=== PATIENT | male | born 1975 | race Caucasian/White ===

== ENCOUNTER → 2018-08-24 | Outpatient (CLI) | payer BC, OTHER ==
[~2018-08-24] MED LIST: ALDACTONE25 MG PO; COREG6.25 MG PO; COUMADIN 3 MG TA3 M1 PO; ENOXAPARIN120 MG/0.1 SUBQ; FLECAINIDE ACET50 M1 PO; LANOXIN 0.120.125 M3 PO; LASIX 40 MG TAB40 M2 PO; LIPITOR 20 MG T20 M1 PO; LISINOPRIL5 MG PO; OMEPRAZOLE 20 M20 M1 PO; PACERONE 200 M200 M1 PO; POTASSIUM20 PO; PRADAXA150 MG PO; TUMS PO; TYLENOL325 MG PO
[2018-08-24 07:13] LABS: HEMATOCRIT 38.2 % (42.0-52.0); MCH 24.1 pg (26.0-34.0); MCHC 31.5 g/dL (28.0-37.0); MCV 76.5 fL (80.0-100.0); RBC 4.99 mil/uL (4.50-6.00); WBC 4.7 thou/uL (4.0-11.0)
[2018-08-24 07:28] LABS: ALBUMIN 3.7 g/dL (3.4-5.0); CALCIUM 9.1 mg/dL (8.5-10.1); CREATININE 0.9 mg/dL (0.7-1.3); POTASSIUM 4.7 mmol/L (3.5-5.1); TOTAL BILIRUBIN 0.6 mg/dL (<0.1-1.0); TOTAL PROTEIN 7.5 g/dL (6.4-8.2)
== END ==
LOC: CAT 06:46
PROVIDERS: Internal Medicine Cardiovascular Disease
DX: I48.91 Unspecified atrial fibrillation (principal)

== ENCOUNTER → 2018-08-28 | Outpatient (CLI) | payer BC, OTHER | LOC: CAT 06:49 | DX: I48.91 Unspecified atrial fibrillation (principal) ==

== ENCOUNTER 2018-08-29 06:36 | Outpatient (CLI) | payer BC, OTHER ==
[~2018-08-29] VITALS: Ht 182.9 cm; Wt 137.0 kg
[2018-08-29] VITALS (10 sets, daily range): BP systolic 134–149; BP diastolic 63–90
[~2018-08-29 06:36] MED LIST changes: -FLECAINIDE ACET50 M1 PO; -PRADAXA150 MG PO
[2018-08-29] MEDS ORDERED: FLECAINIDE ACET50 M1 PO (07:33)
[2018-08-29] MEDS ORDERED: PRADAXA150 MG PO (07:35)
[2018-08-29 07:53] LABS: ABSOLUTE NEUTROPHILS 2.3 thou/uL (1.4-8.2); BASOPHILS 0.6 % (0.0-2.0); EOSINOPHILS 2.6 % (0.0-3.0); HEMATOCRIT 39.1 % (42.0-52.0); HEMOGLOBIN 12.2 gm/dL (14.0-18.0); LYMPHOCYTES 37.4 % (24.0-44.0); MCHC 31.2 g/dL (28.0-37.0); MONOCYTES 9.1 % (1.0-8.0); PLATELET COUNT 123 thou/uL (150-400); POLYS 50.3 % (36.0-66.0); RBC 5.08 mil/uL (4.50-6.00); RDW 19.4 % (10.5-14.5); WBC 4.5 thou/uL (4.0-11.0)
[2018-08-29 08:02] LABS: CALCIUM 9.2 mg/dL (8.5-10.1); CREATININE 0.9 mg/dL (0.7-1.3); POTASSIUM 3.9 mmol/L (3.5-5.1)
[2018-08-29 08:06] LABS: APTT 27.1 Seconds (24.5-32.8); PROTIME 10.4 Seconds (9.3-11.4)
[2018-08-29 08:08] LABS: ALBUMIN 3.7 g/dL (3.4-5.0); TOTAL BILIRUBIN 0.8 mg/dL (<0.1-1.0); TOTAL PROTEIN 7.3 g/dL (6.4-8.2)
--- NOTE | 2018-08-29 20:12 | NUR ---
PATIENT ARRIVED FROM AIRPLANE PILOT AT 1430, ALERT AND ORIENTED X4. SR ON THE MONITOR AND VSS. RT GRION SITE D/C/I AND PATIENT UNDERSTANDING OF ACTIVITY RESTRICTIONS. C/O LT EYE PAIN, AND SORE THROAT. LAYOUT MAN NAYA AT BEDSIDE AND EVELUATED PATIENT ORDERS IN. LT EYE RED AND TEARY, COLD WASH CLOTH APPLIED PER PATIENT REQUEST AND PATIENT REPORTED RELIEVE. POC INTIATED AND ADMISSION COMPLETED.
[2018-08-30 04:31] VITALS: BP 136/83
--- NOTE | 2018-08-30 08:16 | NUR ---
ASSESSMENT CHARTED. PATIENT ON BEDREST AT START OF SHIFT FROM AFIB ABLATION. PATIENT HAS EF OF 20-25%. AT START OF SHIFT PATIENT C/O HEADACHE, MIGRAINE, SCRATCHED LEFT EYE, SORE THROAT WITH UVULA TORN FROM PROCEDURE ANESTHESIA. RIGHT GROIN ACCESS USED. DRESSING IS UNCHANGED DURING SHIFT. PATIENT WAS UP AT [place] DURING SHIFT. PLAN OF CARE IS TO BE SEEN BY ANESTHESIA TODAY, THEN POSSIBLE RELEASE HOME.
[2018-08-30 08:45] VITALS: BP 127/86
[2018-08-30 10:14] VITALS: BP 127/86
[2018-08-30 10:20] VITALS: BP 127/86
--- NOTE | 2018-08-30 14:13 | P ---
[facility] [place] [address] PROCEDURE REPORT Name: KATHERINEDESTIN Room #: [facility] CEE Fernandez#: [id number] Admission: 08/29/18 ������������������ Attend Phys: Efraín Choudhary MD Discharge: 08/30/18 ������������������ Date of : 71 Report #: [id number] THIS REPORT FOR: //name// CC: [facility] physician/PCP Efraín Choudhary PREOPERATIVE DIAGNOSIS: Paroxysmal atrial fibrillation. POSTOPERATIVE DIAGNOSIS: Paroxysmal atrial fibrillation. HISTORY: The patient is a 42-year-old male with history of paroxysmal atrial fibrillation as well as prior nonischemic cardiomyopathy, which has since resolved, who is here for AFib ablation. ANESTHESIA: The patient underwent general anesthesia. They did have some difficulties with his intubation and had to use a GlideScope. Post procedure he was extubated without any airway related issues or bleeding. PROCEDURES PERFORMED: 1. Atrial fibrillation ablation, CPT code 85894. 2. Programmed stimulation and pacing after IV drug infusion, CPT code 20418. 3. 3D mapping EP, CPT code 82436. 4. Arterial line placement, CPT code 46135. 5. Intracardiac echo, CPT code 38813. DESCRIPTION OF PROCEDURE: The patient underwent informed consent. We discussed the details of the procedure including the risks, which include but not limited to bleeding, vascular damage, cardiac perforation, stroke and [place]. He understood these risks and is willing to proceed. The patient was brought to the EP laboratory in fasting and unsedated state and prepped and draped in a sterile fashion. I obtained access to the right femoral vein x 3, placing an 8, 9 and 7-British short sheath using the modified Seldinger technique. In the right femoral artery, I placed a 5-British sheath for blood pressure monitoring. This sheath was sutured to the skin. Next, I placed a Lasso catheter into the right atrium and created a detailed 3D geometry of the right atrium. I then placed the ice catheter into the right atrium and obtained 3D geometry of the left atrium with emphasis of the left common ostium and the two right superior pulmonary veins. I then placed the decapolar catheter into the coronary sinus, but this would not stay in due to difficult anatomy. Next, the patient was systemically heparinized and a transseptal was performed using an SL1 sheath and a Anchor needle. The transseptal was straightforward and I placed a Lasso catheter in the left atrium and created a 3D geometry and voltage map of the left atrium. Next, I exchanged the SL1 sheath for the cryo sheath and a cryoballoon was placed in the left atrium. Isolation was performed of the left common ostium. This required 2 freezes in the superior branch followed by 2 freezes in the inferior branch, each freeze was of 4 minutes duration with [address] [address] PROCEDURE REPORT Name: KATHERINEDESTIN Room #: [facility] CEE Fernandez#: [id number] Admission: 08/29/18 ������������������ Attend Phys: Efraín Choudhary MD Discharge: 08/30/18 ������������������ Date of : 71 Report #: [id number] good temperatures and post ablation there was evidence of entrance and exit block in both branches of the left common ostium. Next, I turned my attention to the right superior pulmonary vein. I performed a total of 4 freezes in this vein. The first 2 freezes were of 4 minutes duration. I performed a second freeze of 3 minutes duration that did not result in isolation, I therefore came off and then a fourth freeze was performed where I ablated more of the inferior and anterior aspect of the vein, which resulted in isolation. I then turned my attention to the right inferior pulmonary vein and this vein isolated within 30 seconds and therefore a single 4-minute freeze was performed. Post ablation an EP study was performed. At baseline, AV block was noted at 360 milliseconds. Atrial ERP was noted at 270 milliseconds with [address] cycle length. Next, isoproterenol infusion was initiated at 2 mcg per minute. AV block was noted at 280 milliseconds. AV bright ERP was noted at 203 milliseconds at [address] cycle length. There was no induction of SVT, atrial fibrillation or atrial flutter. As such, isoproterenol infusion was discontinued. Using intracardiac ultrasound, I verified there was no pericardial effusion. The patient received systemic protamine and once the ACT was within acceptable range, catheters and sheaths were pulled and hemostasis obtained. The patient awoke neurologically and hemodynamically intact. No complications and no significant bleeding. CONCLUSIONS: Successful atrial fibrillation ablation with isolation of the left common ostium and the two right-sided pulmonary veins. ��������������������������������������������� <ELECTRONICALLY SIGNED> ���������������������������������������� By: Efraín Choudhary MD ��������������������������������������������� 08/30/18 1413 0830 1114 Efraín Choudhary MD /nt
--- NOTE | 2018-08-30 14:13 | D ---
[facility] [place] [address] DISCHARGE SUMMARY Name: DESTIN MURPHY Room #: [facility] CEE Fernandez#: [id number] Admission: 08/29/18 ������������������ Attend Phys: Efraín Choudhary MD Discharge: 08/30/18 ������������������ Date of : 71 Report #: [id number] THIS REPORT FOR: //name// CC: [facility] physician/PCP Efraín Choudhary DISCHARGE DIAGNOSIS: Paroxysmal atrial fibrillation. PROCEDURES PERFORMED: AFib ablation. The patient is a 42-year-old with history of paroxysmal AFib, here for an ablation. The patient underwent successful AFib ablation with isolation of the pulmonary veins. Anesthesia did have some difficulties with intubation, but eventually required a GlideScope. Post-procedure, he was extubated with no respiratory issues and his airway revealed no significant bleeding. HOSPITAL COURSE: The patient was monitored in the CCU overnight. On telemetry, he remained in sinus rhythm. On the day of discharge, the patient was doing well. He reported that he had some mild sore throat, but no shortness of breath. He denied any chest pain or groin discomfort. PHYSICAL EXAMINATION: GENERAL: He is in no acute distress. OROPHARYNX: Appeared to be clear. HEART: Regular rate and rhythm. No murmurs, rubs, gallops. LUNGS: Clear to auscultation bilaterally. GROIN: Showed no significant bruising or hematoma. As such, he was deemed stable for discharge home. We emphasized the importance of weight loss, diet, exercise and abstinence from alcohol. We also emphasized the importance of remaining on his cardiac medications, expectantly his blood thinners. He is scheduled to follow up with my nurse practitioner in 2 weeks and see me in 3 months. ��������������������������������������������� <ELECTRONICALLY SIGNED> ���������������������������������������� By: Efraín Choudhary MD ��������������������������������������������� 08/30/18 1413 0833 1000 Efraín Choudhary MD /nt
--- NOTE | 2018-08-30 16:10 | NUR ---
ASSUMED CARE OF PATIENT AT 0700. PATIENT RESTING COMFORTABLY IN BED. PATIENT'S RIGHT GROIN SITE HAD A NICKEL SIZE AREA ON THE GAUZE OF DRIED BLOOD THAT THE NIGHT NURSE STATES HAS BEEN THERE SINCE SHE TOOK HIM OVER AT THE BEGINNING OF SHIFT. PATIENT IS FREE OF EDEMA OR HEMATOMA. PATIENT IS ANXIOUS TO GO HOME. PATIENT SEEN BY DR. 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 RESTRICTIONS REVIEWED WITH THE PATIENT AND DISCHARGE PAPERWORK SIGNED. TELE AND IV REMOVED. PATIENT STATES THAT HE FEELS BETTER THAN HE DID WHEN HE ARRIVED. PATIENT TAKEN VIA WHEELCHAIR TO THE MAIN ENTRANCE TO BE DRIVEN HOME BY AN ADULT FRIEND.
== END 2018-08-30 10:43 | disposition home or self-care (01) ==
LOC: CATH 06:36 → 2N 06:49 → CATH 12:03
PROVIDERS: Internal Medicine Cardiovascular Disease
DX: I48.0 Paroxysmal atrial fibrillation (principal); I42.9 Cardiomyopathy, unspecified; I10 Essential (primary) hypertension; G47.33 Obstructive sleep apnea (adult) (pediatric); E78.5 Hyperlipidemia, unspecified; E66.09 Other obesity due to excess calories; Z79.01 Long term (current) use of anticoagulants; Z98.890 Other specified postprocedural states; Z79.899 Other long term (current) drug therapy
CPT/HCPCS: 10081; 62110; 62900; 70005

== ENCOUNTER → 2021-05-11 | Outpatient (CLI) | payer BC, OTHER ==
[~2021-05-11] MED LIST changes: +FLECAINIDE ACET50 M1 PO; +PRADAXA150 MG PO
== END ==
LOC: SJCVC 09:18
PROVIDERS: ATTEND Internal Medicine Cardiovascular Disease
DX: I07.1 Rheumatic tricuspid insufficiency (principal); I48.0 Paroxysmal atrial fibrillation; I10 Essential (primary) hypertension; Z87.891 Personal history of nicotine dependence